=== PATIENT | male | born 1990 | race American Indian/Alaskan Native ===

== ENCOUNTER 2019-03-17 18:24 | Emergency (ER) | payer OTHER ==
[2019-03-17] MEDS ORDERED: ATIVAN IM PRN (19:34)
[2019-03-17] MEDS ORDERED: HALDOL IM PRN (19:34)
--- NOTE | 2019-03-17 19:36 | Emergency Department Report ---
ED Psych HPI - General Chief Complaint: Psych Stated Complaint: sleep Time Seen by Provider: 03/17/19 19:32 Source: patient, RN notes reviewed Mode of arrival: Ambulatory Limitations: No Limitations - History of Present Illness Initial Comments: This is a pleasant 28-year-old gentleman who is not known to this provider previously. The patient presents to the emergency room today with a complaint of "I'm having trouble sleeping." Contrary to what is documented in the triage note, the patient endorses that he is not threatening to kill himself and he is not talking to himself. The patient's mother is at his bedside, her name is Ms Dannielle Kenney; [phone] She is adamant while I am interviewing her and the patient's that the patient is not suicidal, not homicidal, and that she feels safe to have the patient and home. The patient indicates that he works normal business hours. He indicates that he started consuming and new tea. Since then, he has been having trouble sleeping. The patient denies headache, neck pain, chest pain, abdominal pain, shortness of breath, he is not homicidal, he is not suicidal, and he denies hallucinations. The patient doesn't dorsal that he is on a computer, cellular phone immediately placed via games quite a bit before nighttime. Family is at the bedside, and they adamantly corroborates that there is no concern for homicidality or suicidality. -: Gradual History of same: No Quality: intermittent Improves With: none Worsens With: none Context: other (started a new tea) - Related Data Allergies Allergy/AdvReac Type Severity Reaction Status Date / Time No Known Allergies Allergy Unverified 03/17/19 18:27 ED Review of Systems ROS: Stated complaint: SI Other details as noted in HPI Constitutional: denies: fever Eyes: denies: vision change ENT: denies: epistaxis Respiratory: denies: cough Cardiovascular: denies: chest pain Gastrointestinal: denies: abdominal pain Musculoskeletal: denies: back pain Psychiatric: denies: anxiety, depression, auditory hallucinations, visual hallucinations, homicidal thoughts, suicidal thoughts ED Past Medical Hx - Past Medical History Previous Medical History?: No - Surgical History Past Surgical History?: No - Social History Smoking Status: Current Every Day Smoker Substance Use Type: Alcohol, Marijuana ED Physical Exam - General Limitations: No Limitations General appearance: alert, anxious - Head Head exam: Present: atraumatic, normocephalic - Eye Eye exam: Present: normal appearance, EOMI, other (visual acuity intact to finger counting, color perception, reading at a close distance). Absent: nystagmus - ENT ENT exam: Present: normal exam, normal orophraynx, mucous membranes moist, normal external ear exam - Neck Neck exam: Present: normal inspection, full ROM. Absent: tenderness, meningismus - Respiratory Respiratory exam: Present: normal lung sounds bilaterally. Absent: respiratory distress - Cardiovascular Cardiovascular Exam: Present: regular rate, normal rhythm, normal heart sounds. Absent: bradycardia, tachycardia, irregular rhythm, systolic murmur, diastolic murmur, rubs, gallop - GI/Abdominal GI/Abdominal exam: Present: soft. Absent: distended, tenderness, guarding, rebound, rigid, pulsatile mass - Rectal Rectal exam: Present: deferred - Extremities Exam Extremities exam: Present: normal inspection, full ROM, other (2+ pulses noted in the bilateral upper extremities. There is no long bony tenderness. The patient moves 4 extremities spontaneously.) - Back Exam Back exam: Present: normal inspection, full ROM. Absent: tenderness, CVA tenderness (R), CVA tenderness (L), paraspinal tenderness, vertebral tenderness - Neurological Exam Neurological exam: Present: alert, oriented X3, normal gait, other (Extraocular movements intact. Tongue midline. No facial droop. Facial sensation intact to light touch in the V1, V2, V3 distribution bilaterally. 5 and 5 strength in 4 extremities.. Sensation is intact to light touch in 4 extremities.). Absent: motor sensory deficit - Psychiatric Psychiatric exam: Present: anxious. Absent: homicidal ideation, suicidal ideation - Skin Skin exam: Present: warm, dry, intact, normal color. Absent: rash ED Course Vital Signs 03/17/19 18:30 Temperature 98.5 F Pulse Rate 97 H Respiratory 18 Rate Blood Pressure 126/90 [Left] O2 Sat by Pulse 100 Oximetry ED Medical Decision Making - Lab Data Vital Signs 03/17/19 18:30 Temperature 98.5 F Pulse Rate 97 H Respiratory 18 Rate Blood Pressure 126/90 [Left] O2 Sat by Pulse 100 Oximetry - Medical Decision Making Differential diagnosis, including but not limited to: Sleep disorder, [place] Assessment and plan: 28-year-old gentleman with sleep disorder, likely secondary to poor sleep hygiene, and probable recent initiation of caffeinated beverages. The patient is alert and oriented 3, clinically sober, free from distracting injury, exam is decision-making capacity, and is clearly not psychotic at this time. Furthermore, family is at the bedside, and they strongly and adamantly corroborates that he is not a danger to himself or other people. The patient is seen in conjunction with the crisis team, who also independently agrees that the patient does not meet inpatient hospitalization criteria, or 1013 criteria. Initial orders were placed off of the triage complaint, however, it is clear this point time that the patient is not a danger to himself or other people, and does not require laboratory studies, EKG, or CT scan of the brain. We discussed avoidance of caffeinated substances, proper sleep hygiene, and the patient may follow up with an outpatient primary care doctor. He does not appear to have an emergent medical condition at this time. Critical care attestation.: If time is entered above; I have spent that time in minutes in the direct care of this critically ill patient, excluding procedure time. ED Disposition Clinical Impression: Sleep disorder Disposition: DC-01 TO HOME OR SELFCARE Is pt being admited?: No Does the pt Need Aspirin: No Condition: Stable Additional Instructions: Please make certain to avoid consumption of caffeinated beverages and stimulants. Please make certain to avoid distractions prior to going to sleep. Make certain to participate in physical activity on a regular basis as tolerated. Follow-up with the primary care doctor within the next month. It's asleep derangement and sleep symptoms still persist after the aforementioned interventions, the patient may follow up with a sleep specialist, such as Dr. Bergeron, at his convenience. Please return to the emergency room right away with new, worsening or different symptoms, or symptoms not present on the initial ER evaluation. Referrals: [facility] [Provider Group] - 3-5 Days SHAUNNA BERGERON MD [Staff Physician] - 3-5 Days
[2019-03-17 21:33] VITALS: BP 120/86
== END 2019-03-17 22:09 | disposition home or self-care (01) ==
LOC: ED 18:24 → EEVIPCON 18:24 → ED 22:09
DX: G47.9 Sleep disorder, unspecified (principal); F17.200 Nicotine dependence, unspecified, uncomplicated; F12.90 Cannabis use, unspecified, uncomplicated
CPT/HCPCS: 99283; J1630; J2060

== ENCOUNTER 2022-06-02 21:08 | Emergency (ER) | payer SELFPAY | END 2022-06-02 21:59 | disposition left against medical advice (07) | LOC: ED 21:08 | DX: R44.0 Auditory hallucinations (principal); Z53.21 Procedure and treatment not carried out due to patient leaving prior to being seen by health care provider ==

== ENCOUNTER 2022-06-03 16:27 | Emergency (ER) | payer SELFPAY ==
[2022-06-03 18:18] VITALS: BP 108/72
== END 2022-06-04 09:05 | disposition left against medical advice (07) ==
LOC: ED 16:27
DX: Z13.30 Encounter for screening examination for mental health and behavioral disorders, unspecified (principal); Z53.21 Procedure and treatment not carried out due to patient leaving prior to being seen by health care provider

== ENCOUNTER 2022-06-18 20:42 | Emergency (ER) | payer SELFPAY ==
[2022-06-18 21:33] VITALS: BP 113/70
== END 2022-06-19 19:02 | disposition left against medical advice (07) ==
LOC: ED 20:42
DX: R51.9 Headache, unspecified (principal); Z53.21 Procedure and treatment not carried out due to patient leaving prior to being seen by health care provider